=== PATIENT | female | born 1980 | race Caucasian/White ===

== ENCOUNTER → 2019-09-24 | Outpatient (CLI) | payer OTHER ==
[~2019-09-24] MED LIST: ACYC400; FERR325; IBUP800 PO; Verotin-Gr Cap1 EACH
[2019-09-25 14:11] LABS: HPV 16 Negative (Negative); HPV 18 Negative (Negative); HPV OTHER HR TYPES Negative (Negative)
== END | disposition home or self-care (01) ==
LOC: LAB SHORT 15:35 → LAB 15:35
PROVIDERS: Obstetrics & Gynecology
DX: Z01.419 Encounter for gynecological examination (general) (routine) without abnormal findings (principal)
CPT/HCPCS: 87624; G0123

== ENCOUNTER 2022-08-04 20:24 | Inpatient (IN) | payer OTHER ==
[~2022-08-04] VITALS: Ht 170.2 cm; Wt 62.3 kg
[2022-08-04 21:14] LABS: Source, Urine Clean Catch
[2022-08-04 21:21] LABS: Appearance, Urine Clear (Clear); Bilirubin, Urine Neg (Neg); Blood, Urine Neg (Neg); Color, Urine Yellow (P-Yellow); Glucose Qualitative, Urine Neg (Neg); Ketones, Urine 3+ (Neg); Leukocyte Esterase, Urine Neg (Neg); Nitrite, Urine Neg (Neg); Protein, Urine 1+ (Neg); Urobilinogen, Urine NORM (Normal)
[2022-08-04 21:30] LABS: Albumin, Blood 4.1 g/dL (3.4-5.0); Albumin/Globulin Ratio 1.2 (0.8-1.8); Bilirubin, Total 0.4 mg/dL (0.1-1.0); Bun/Creatinine Ratio 18.6 (12.0-20.0); Calcium, Blood 8.5 mg/dL (8.5-10.1); Creatinine, Blood 0.86 mg/dL (0.40-1.00); Globulin, Blood 3.4 g/dL (2.2-4.0); Potassium, Blood 3.7 mmol/L (3.5-5.5); Total Protein, Blood 7.5 g/dL (6.4-8.2)
[2022-08-04 21:46] LABS: BASOPHILS ABSOLUTE AUTO 0.05 K/mm3 (0.00-0.23); BASOPHILS PERCENT AUTO 1 % (0-2); EOSINOPHILS ABSOLUTE AUTO 0.06 K/mm3 (0.00-0.68); EOSINOPHILS PERCENT AUTO 1 % (0-6); Hematocrit 37.6 % (33.0-51.0); Hemoglobin 12.6 g/dL (11.5-16.0); IMMATURE GRAN ABSOLUTE AUTO 0.02 K/mm3 (0.00-0.10); IMMATURE GRAN PERCENT AUTO 0 % (0-1); LYMPHOCYTES ABSOLUTE AUTO 1.42 K/mm3 (0.84-5.20); LYMPHOCYTES PERCENT AUTO 16 % (21-46); MONOCYTES PERCENT AUTO 3 % (4-13); Mean Corpuscular HGB 30.1 pg (26.0-34.0); Mean Corpuscular HGB Conc 33.5 g/dL (31.5-36.5); Mean Corpuscular Volume 90 fL (80-100); Mean Platelet Volume 9.6 fL (9.1-12.4); NEUTROPHILS ABSOLUTE AUTO 7.18 K/mm3 (1.96-9.15); NEUTROPHILS PERCENT AUTO 80 % (41-73); Platelet Count 307 K/mm3 (150-400); RDW Coefficient Variation 12.6 % (11.7-14.2); RDW Standard Deviation 41.3 fL (35.1-46.3); Red Blood Cell Count 4.18 M/mm3 (3.80-5.20); White Blood Cell Count 9.03 K/mm3 (4.00-11.30)
--- NOTE | 2022-08-05 03:35 | NUR ---
ARRIVAL TO ICU 6 PT ARRIVED TO ICU 6 AT 0020 BUT IS A MED/SURG PT. SHE WAS ABLE TO WALK FROM ED BED TO ICU BED WITH OUT ISSUE. SHE IS A/O X4 AND ABLE TO MAKE HER NEEDS KNOWN. VSS. PAIN MANAGED WITH DILAUDID IV Q3HR AND HELPFUL FOR RLQ PAIN. LR BOLUS FINSISHED SHORTLY AFTER ARRIVING. SEE ADMISSION ASSESSMENT FOR FULL ASSESSMENT.
--- NOTE | 2022-08-05 06:06 | NUR ---
END OF SHIFT SUMMARY NO ACUTE EVENTS OVERNIGHT. PT RECIEVED ONE DOSE OF DILAUDID SINCE ARRIVAL TO ICU, SINCE THEN SHE HAS BEEN ABLE TO SLEEP MORE COMFORTABLY. CALLS APPROPRIATLY. WILL REPORT TO AM RN WHEN AVAILABLE.
--- NOTE | 2022-08-05 09:51 | NUR ---
Assumed care of pt at 0830 from Luisa SPAULDING. Pt is surgical floor status. Pt A&O x 4. Answers questions, follows commands. Verbalizes needs. Pleasant and cooperative with care. SpO2 90% or greater room air. Call from ER regarding concern for ovarian torsion per radiologist. This RN called Dr Mcdaniels to discuss. Provider ordered ultrasound per rad recommendation. US completed. Dr Mcdaniels in to see patient. Provider states he will call line therapist contribution solicitor, Carina Jaime, when radiologist has read the US.
--- NOTE | 2022-08-05 11:17 | NUR ---
Dr Mcdaniels in to see patient. Provider gives update that he discussed case with Dr Jaime, who patient is familiar with - this is her outpatient scale attendant. Plan for pt to have labs drawn here and then she will follow up with Dr Jaime as an outpatient. Pt verbalizes understanding. Written prescription provided by Dr Mcdaniels for pain meds. Pt says spouse is on his way.
[2022-08-05 12:04] LABS: Cancer Antigen 125 9.8 U/mL (1.5-35.0); Carcinoembryonic Antigen 2.3 ng/mL (0.0-3.0)
--- NOTE | 2022-08-05 12:43 | NUR ---
Patient discharged home at 1220. Discharge education given to patient and spouse. Written prescription provided to patient. Patient states she will call Dr Jaime's office on Sunday for follow up appointment.
== END 2022-08-05 12:20 | disposition home or self-care (01) | DRG 761 ==
LOC: ER 20:24 → ICUW 23:33 → ICUE 08-05 00:19
PROVIDERS: Student in an Organized Health Care Education/Training Program; ADMIT Surgery
DX: N83.201 Unspecified ovarian cyst, right side (principal); Z79.899 Other long term (current) drug therapy
CPT/HCPCS: 36415; 74177; 76856; 80053; 81025; 82378; 83690; 85025; 86304; 96365-59; 96375; 99285-25; J0744; J1170; J2405; J7120; Q9967

== ENCOUNTER 2022-08-09 06:29 | Day surgery (SDC) | payer OTHER ==
[~2022-08-09] VITALS: Ht 170.2 cm; Wt 64.4 kg
--- NOTE | 2022-08-09 09:15 | NUR ---
08/09/22 0915 Sera Crandall 14FR TOWNSEND CATH INSERTED PRIOR TO PREP WITHOUT DIFFICULTY DRAINING CLEAR YELLOW FLUID BY CARMEN SPAULDING AFTER CASE SECURED TO RIGHT ANT THIGH PER POLICY
--- NOTE | 2022-08-09 10:27 | NUR ---
PATIENT CAME BACK FROM PACU TODAY AT 1027. POD 0 LAP HYSTER PATIENT IS A&OX4. VS ARE WNL AND IS ON RA. PATIENT DENIES PAIN AT THIS TIME. SHE HAS A TRANSVERSE MEDIPORE DRESSING WITH SCANT AMOUNT OF BLOOD ON IT BUT OTHERWISE IS INTACT. CHARO PAD HAS SCANT AMOUNT OF BLOOD ON IT. ABD IS TENDER TO PALPATATE. PATIENT IS ABLE TO MOVE FINGERS AND TOES WHEN ASKED. SHE IS TOLERATING SMALL AMOUNTS OF PO INTAKE. TOWNSEND IS DRAINING PER GRAVITY WITH DARK YELLOW URINE OUTPUT. IS AT BEDSIDE. CALL LIGHT IS WITHIN REACH.
[2022-08-09 12:13] LABS: BASOPHILS ABSOLUTE AUTO 0.02 K/mm3 (0.00-0.23); BASOPHILS PERCENT AUTO 0 % (0-2); EOSINOPHILS ABSOLUTE AUTO 0.01 K/mm3 (0.00-0.68); EOSINOPHILS PERCENT AUTO 0 % (0-6); Hematocrit 30.9 % (33.0-51.0); Hemoglobin 10.5 g/dL (11.5-16.0); IMMATURE GRAN ABSOLUTE AUTO 0.03 K/mm3 (0.00-0.10); IMMATURE GRAN PERCENT AUTO 0 % (0-1); LYMPHOCYTES ABSOLUTE AUTO 0.48 K/mm3 (0.84-5.20); LYMPHOCYTES PERCENT AUTO 5 % (21-46); MONOCYTES ABSOLUTE AUTO 0.26 K/mm3 (0.16-1.47); MONOCYTES PERCENT AUTO 3 % (4-13); Mean Corpuscular HGB 30.3 pg (26.0-34.0); Mean Corpuscular Volume 89 fL (80-100); Mean Platelet Volume 9.5 fL (9.1-12.4); NEUTROPHILS PERCENT AUTO 92 % (41-73); Platelet Count 233 K/mm3 (150-400); RDW Coefficient Variation 12.3 % (11.7-14.2); RDW Standard Deviation 40.1 fL (35.1-46.3); Red Blood Cell Count 3.46 M/mm3 (3.80-5.20)
--- NOTE | 2022-08-09 15:00 | NUR ---
SHIFT SUMMARY: POD 0 LAP HYSTER NO SIGNIFICANT CHANGES. PATIENT IS A&OX4. VS ARE WNL AND IS ON RA. PAIN IS MANAGED WITH ORAL PAIN MEDICATIONS. HER TRANSVERSE LAP SITES HAVE STERI STRIPS WITH MEDIPORE DRESSING IS C/D/I AFTER BEING CHANGED ONCE. TOWNSEND WAS JUST PULLED SINCE SHE WAS ABLE TO AMBULATE WITHIN THE ROOM A SBA. WILL MONITOR FOR POST VOID. SHE IS TOLERATING PO INTAKE. PATIENT IS LAYING IN BED WITH CALL LIGHT IN REACH.
--- NOTE | 2022-08-10 04:34 | NUR ---
POD1 LAP SALPINGO-OOPHERECTOMY. TRANSVERSE DRESSING IS C/D/I. VSS. PT HAS BEEN ABLE TO AMBULATE TO THE BATHROOM T/O THE NIGHT, INDEP, VOIDING W/O DIFFICULTY. TOLLERATING PO INTAKE. MEDICATED FOR NAUSEA ONCE. PAIN HAS BEEN MANAGED WITH SCHEDULED AND PRN'S. PT HAS HAD MINIMAL VAGINAL BLEEDING T/O THE NIGHT. NO ACUTE EVENTS NOTED. PLAN FOR PT TO D/C HOME TODAY. THE PATIENT IS CURRENTLY SLEEPING, IN NO DISTRESS, CALL LIGHT IN REACH
[2022-08-10] MEDS ORDERED: Percocet 5-3251 EACH PO (08:59)
[2022-08-10] MEDS ORDERED: IBU800 MG PO (09:00)
--- NOTE | 2022-08-10 10:18 | NUR ---
DISCHARGE SUMMARY PATIENT ALERT AND ORIENTED. TOLERATING REGULAR DIET AND ORAL LIQUIDS. SALINE LOCKED. VOIDING WELL. NO BM, PASSING GAS. REPORTS LOWER ABD PAIN 4/10 MANAGED WITH PRN IBUPROFEN. DRESSING WITH SCANT RED SPOTTING, ALSO SCANT SPOTTING TO CHARO PAD. INDEPENDENT IN THE ROOM. IV DC'D WNL. DISCHARGE INSTRUCTIONS GIVEN ON INCISION CARE, PAIN MEDS, AND FOLLOW UP. PATIENT LEFT UNIT AT 0930 VIA WHEELCHAIR FOR HOME.
== END 2022-08-10 09:30 | disposition home or self-care (01) ==
LOC: ORSCMMR 06:29 → EDSTATUS 07:30 → SURS 07:30 → ORSCMMR 08-10 09:30 → SURS 08-10 09:30
PROVIDERS: Obstetrics & Gynecology
PROC: 0UT50ZZ Resection of Right Fallopian Tube, Open Approach (ICD-10-PCS; principal; 2022-08-09 07:30)
PROC: 0UT00ZZ Resection of Right Ovary, Open Approach (ICD-10-PCS; principal; 2022-08-09 07:30)
DX: D27.0 Benign neoplasm of right ovary (principal); N83.53 Torsion of ovary, ovarian pedicle and fallopian tube
CPT/HCPCS: 36415; 85025; 88108; 88305; A9270; J0690; J1100; J1885; J2250; J2405; J2704; J2795; J3010; J7120

== ENCOUNTER 2022-08-18 11:50 | Emergency (ER) | payer OTHER ==
[~2022-08-18] VITALS: Ht 170.2 cm; Wt 63.5 kg
[~2022-08-18 11:50] MED LIST changes: +IBU800 MG PO; +Percocet 5-3251 EACH PO
== END 2022-08-18 15:45 | disposition home or self-care (01) ==
LOC: ER 11:50
DX: L76.22 Postprocedural hemorrhage of skin and subcutaneous tissue following other procedure (principal)
CPT/HCPCS: 99283

== ENCOUNTER → 2023-06-11 | Outpatient (CLI) | payer OTHER | LOC: LAB SHORT 14:58 → LAB 14:58 | DX: L57.0 Actinic keratosis (principal) | CPT/HCPCS: 88305 ==